=== PATIENT | female | born 1975 | race Caucasian/White ===

== ENCOUNTER 2021-02-27 10:39 | Emergency (ER) | payer MEDICAID ==
[~2021-02-27] VITALS: Ht 167.6 cm; Wt 72.6 kg
--- NOTE | 2021-02-27 10:55 | NUR ---
at bedside for MSE.
[2021-02-27] MEDS ORDERED: ACETAMINOPHEN 325 MG TABLET PO ONE (11:15)
[2021-02-27] MEDS ORDERED: KETOROLAC TROMETHAMINE 15 MG INJ IVP ONE (11:15)
[2021-02-27] MEDS ORDERED: LORAZEPAM 0.5 MG TABLET PO ONE (11:15)
[2021-02-27] MEDS ORDERED: IV NORMAL SALINE 100 ML BAG IV ONE (11:15)
[2021-02-27] MEDS ORDERED: METOCLOPRAMIDE HCL 10 MG/2 ML VIAL IV ONE (11:15)
[2021-02-27 11:27] LABS: HEMATOCRIT 38.1 % (31.2-41.9); MEAN CORPUSCULAR HEMOGLOBIN 29.6 uug (24.7-32.8); MEAN CORPUSCULAR VOLUME 85.6 fL (75.5-95.3); PLATELET COUNT (AUTO) 387 K/uL (179-408)
[2021-02-27] MEDS ORDERED: LORAZEPAM 1 MG TABLET ONE (11:30)
[2021-02-27] MEDS ORDERED: METOCLOPRAMIDE HCL 10 MG/2 ML VIAL ONE (11:30)
[2021-02-27] MEDS ORDERED: ACETAMINOPHEN 325 MG TABLET ONE (11:30)
[2021-02-27] MEDS ORDERED: KETOROLAC TROMETHAMINE 15 MG INJ ONE (11:30)
[2021-02-27 11:32] LABS: CARBON DIOXIDE 26 mmol/L (21-32); CHLORIDE 101 mmol/L (98-107); CREATININE 0.8 mg/dL (0.6-1.3); GLUCOSE 136 mg/dL (74-106); POTASSIUM 3.8 mmol/L (3.5-5.1); UREA NITROGEN, BLOOD 17 mg/dL (7-18)
[2021-02-27 11:39] LABS: ALANINE AMINOTRANSFERASE 31 U/L (14-59); ALKALINE PHOSPHATASE 88 U/L (50-136); ASPARTATE AMINOTRANSFERASE 18 U/L (15-37); BILIRUBIN,TOTAL 0.3 mg/dL (0.2-1.0); TOTAL PROTEIN, SERUM 6.4 g/dL (6.4-8.2)
[2021-02-27 14:05] VITALS: BP 129/81
--- NOTE | 2021-02-27 14:05 | NUR ---
Patient discharged to home in stable condition. Written and verbal after care instructions given. Patient verbalizes understanding of instructions. Stressed follow up or return to ER for worsening s/s.PT WALKS IN STEADY GAIT. PT NOT DRIVING.
== END 2021-02-27 14:06 | disposition home or self-care (01) ==
LOC: ER 10:39
DX: R51.9 Headache, unspecified (principal); F41.9 Anxiety disorder, unspecified; R03.0 Elevated blood-pressure reading, without diagnosis of hypertension
CPT/HCPCS: 36415; 70450; 80053; 84484; 84702; 85025; 96374; 96375; 99284; J1885; J2765; 70030-TC; A4663; J7030